=== PATIENT | female | born 1985 | race Caucasian/White ===

== ENCOUNTER 2018-09-07 21:16 | Emergency (ER) | payer BC, OTHER ==
[~2018-09-07] VITALS: Ht 152.4 cm; Wt 75.5 kg
[2018-09-07 21:28] VITALS: BP 143/75; PULSE 80; RESP 18; Ht 152.4 cm; Wt 75.5 kg
[2018-09-08] MEDS ORDERED: LIDOCAINE 1% (MDV) 10 ML INJ INJ STA (01:16)
[2018-09-08] MEDS ORDERED: IBUPROFEN 800 MG TAB PO STA (01:16)
--- NOTE | 2018-09-08 01:24 | ERD ---
ER Documentation Chief Complaint Chief Complaint left thumb laceration with knife while opening box around 2009 HPI 32-year-old female presents with complaint of left thumb laceration due to cutting her thumb with a press box custodian accidentally at 8:00 today. States that she is not sure if she is up-to-date on her tetanus. Denies any numbness, tingling, weakness, impaired range of motion. Denies any chance of . Denies past medical history. Denies allergies. Denies medications. Denies surgeries. Denies alcohol, tobacco, drug use. Up to date on vaccines. ROS All systems reviewed and are negative except as per history of present illness. Medications Home Meds Active Scripts Ibuprofen* (Motrin*) 600 Mg Tab, 600 MG PO Q6, #30 TAB Prov:LEILA OROZCO 09/08/18 Allergies Allergies: Coded Allergies: No Known Drug Allergies (Verified Allergy, Unknown, 09/07/18) PMhx/Soc Medical and Surgical Hx: pt denies Medical Hx, pt denies Surgical Hx History of Surgery: No Anesthesia Reaction: No Hx Neurological Disorder: No Hx Respiratory Disorders: No Hx Cardiac Disorders: No Hx Psychiatric Problems: No Hx Miscellaneous Medical Probl: Yes (OD) Hx Alcohol Use: No Hx Substance Use: No Hx Tobacco Use: No Smoking Status: Never smoker FmHx Family History: No diabetes, No coronary disease, No other Physical Exam Vitals Vital Signs Date Temp Pulse Resp B/P (MAP) Pulse Ox O2 O2 Flow FiO2 Time Delivery Rate 09/07/18 98.7 80 18 143/75 99 21:28 (97) Physical Exam Const: No acute distress Head: Atraumatic Eyes: Normal Conjunctiva ENT: Normal External Ears, Nose and Mouth. Resp: Clear to auscultation bilaterally Cardio: Regular rate and rhythm, no murmurs Left thumb: Approximately 2 cm linear vertical laceration located over dorsal aspect of left thumb. Distal sensation and range of motion are intact. No foreign bodies noted in wound. No active bleeding noted. No evidence of tendon injury or neurovascular compromise. . Neur: Awake and alert Psych: Normal Mood and Affect Results 24 hrs Current Medications Medications Dose Sig/Micha Start Time Status Last (Trade) Ordered Route PRN Stop Time Admin Dose Reason Admin Diphtheria/ 0.5 ml ONCE ONCE 09/08/18 DC 09/08/18 Tetanus/Acell IM* 01:30 01:29 Pertussis 09/08/18 01:31 (Adacel) Lidocaine 10 ml ONCE STAT 09/08/18 DC HCl INJ 01:16 (Lidocaine 09/08/18 01:20 1% (Mdv) 10 ml) Ibuprofen 800 mg ONCE STAT 09/08/18 DC 09/08/18 (Motrin) PO 01:16 01:28 09/08/18 01:20 Lidocaine 10 ml ONCE ONCE 09/08/18 DC (Xylocaine INJ 01:39 1% (Mpf)) 09/08/18 01:40 Procedures/MDM Patient was not up-to-date on her tetanus laceration Repair by me: Anesthesia: 1% lidocaine locally Location: Left thumbn Tendon/Joint/Nerves: No injury Foreign body: None detected after copious irrigation and exploration Technique: Simple Interrupted Sutures Complexity: No subcutaneous sutures/mucosal repair/edge excision Post Closure Length: 2.5 cm Patient's bleeding was easily controlled in the department and there is no indication of anemia. No evidence of compartment syndrome, neurologic injury, vascular injury, open joint, tendon laceration, or foreign body. Patient is appropriate for outpatient follow up. 48 hour wound check. Scar minimization instructions given. 32-year-old female presents with complaint of left thumb laceration due to cutting her thumb with a press box custodian accidentally at 8:00 today. States that she is not sure if she is up-to-date on her tetanus. Denies any numbness, tingling, weakness, impaired range of motion. Denies any chance of . Denies past medical history. Denies allergies. Denies medications. Denies surgeries. Denies alcohol, tobacco, drug use. Up to date on vaccines. Laceration was repaired using the above technique. Patient not UTD on tetanus so was given Tdap. Sensation and movement were intact therefore I have low suspicion for neurovascular compromise. In addition, low suspicion for open fracture, infection, foreign body retention, or any other emergent condition. Patient advised to follow-up in 48 hours for wound check. Patient discharged with strict ER precautions. Patient advised to follow up with PMD. All questions answered at discharge. Departure Diagnosis: Primary Impression: Laceration Condition: Stable LEILA OROZCO Sep 08, 2018 01:24
[2018-09-08] MEDS ORDERED: DIPHTH/TET/ACEL PERTUSS (ADULT) 0.5 ML VIAL IM* ONE (01:30)
[2018-09-08] MEDS ORDERED: LIDOCAINE 1% (MPF) 5 ML VIAL INJ ONE (01:39)
[2018-09-08] MEDS ORDERED: IBUP-1542 PO (02:49)
== END 2018-09-08 03:02 | disposition home or self-care (01) ==
LOC: FTE 21:16
DX: S61.012A Laceration without foreign body of left thumb without damage to nail, initial encounter (principal); W26.0XXA Contact with knife, initial encounter; Y92.9 Unspecified place or not applicable; Z23 Encounter for immunization
CPT/HCPCS: 90471; 90715